=== PATIENT | male | born 1985 | race Hispanic/Latino ===

== ENCOUNTER 2017-12-17 07:56 | Emergency (ER) | payer SELFPAY ==
[~2017-12-17] VITALS: Ht 175.3 cm; Wt 80.0 kg
[~2017-12-17 07:56] MED LIST: AUGMENTIN875TAB OR; DEPO-MEDROL40 MG/ML IM; FIORICET PO; LORTAB 5-325 MG1 TAB PO; LORTAB 5/3255 MG PO; MEDDOSEPAK PO; PHENERGAN25 MG/TAB PO; TORADOL PO
[2017-12-17 09:02] LABS: HEMOGLOBIN 14.6 g/dl (14.0-18.0); IMMATURE GRANULOCYTES 0.5 % (0.0-1.0); MEAN CORPUSCULAR HGB 30.5 pG CALC (26.0-32.0); NEUT# 12.47 thou/uL (1.82-7.42); RED BLOOD COUNT 4.78 mill/uL (4.70-6.10); RED CELL DISTRI WIDTH 12.6 % (11.5-15.5)
[2017-12-17 09:05] LABS: URINE BILIRUBIN - DIPSTICK NEGATIVE (NEGATIVE); URINE BLOOD DIPSTICK LARGE (NEGATIVE); URINE COLOR YELLOW; URINE GLUCOSE - DIPSTICK NEGATIVE (NEGATIVE); URINE KETONE TRACE mg/dL (NEGATIVE); URINE LEUK ESTERASE NEGATIVE (NEGATIVE); URINE NITRITE - DIPSTICK NEGATIVE (Negative); URINE PH 6.5 (4.5-8.0); URINE PROTEIN - DIPSTICK TRACE mg/dL (NEG-TRACE); URINE SPECIFIC GRAVITY 1.025; URINE UROBILINOGEN - DIPSTICK 0.2 E.U./dL (0.2)
[2017-12-17 09:08] LABS: URINE CLARITY SL CLOUDY
[2017-12-17 09:10] LABS: ALBUMIN 4.6 g/dL (3.2-5.0); ALKALINE PHOSPHATASE 87 u/l (38-126); ANION GAP 16 (6-22 (CALC)); BILIRUBIN, TOTAL 0.5 mg/dL (0.0-1.4); BUN 14 mg/dL (9-20); BUN/CREATININE RATIO 12 (12-20 (CALC)); CARBON DIOXIDE 26 mmol/l (22-30); CHLORIDE 104 mmol/l (95-108); CREATININE 1.2 mg/dL (0.7-1.3); GFR > 60 ML/MIN (>=60 (CALC)); GFR FOR AFR.AMER. > 60 ML/MIN (>=60 (CALC)); LIPASE 130 u/l (23-300); POTASSIUM 4.1 mmol/l (3.5-5.1); SGOT/AST 38 u/l (17-59); SGPT/ALT 51 u/l (21-72); SODIUM 142 mmol/l (137-146); TOTAL PROTEIN 7.9 g/dL (6.3-8.2); URINE RBC 25-50 RBC/hpf (0-5)
[2017-12-17] MEDS ORDERED: CEPHALEXIN500 M1 PO (09:54)
[2017-12-17] MEDS ORDERED: HYDROCO/APAP1 TA9 PO (09:54)
[2017-12-17] MEDS ORDERED: MOTRIN400 MG PO (09:54)
[2017-12-17] MEDS ORDERED: TAMSULOSIN0.4 MG PO (09:54)
[2017-12-17 10:19] VITALS: BP 121/77
== END 2017-12-17 10:30 | disposition home or self-care (01) | DRG 694 ==
LOC: ED 07:56
PROVIDERS: Family Medicine
DX: N13.2 Hydronephrosis with renal and ureteral calculous obstruction (principal); R10.9 Unspecified abdominal pain

== ENCOUNTER 2019-10-15 | Emergency (ER) | payer SELFPAY ==
[~2019-10-15] MED LIST changes: +CEPHALEXIN500 M1 PO; +HYDROCO/APAP1 TA9 PO; +MOTRIN400 MG PO; +TAMSULOSIN0.4 MG PO
[2019-10-15 06:31] LABS: HEMATOCRIT 43.8 % (39.0-50.0); HEMOGLOBIN 14.7 g/dl (14.0-18.0); IMMATURE GRANULOCYTES 0.6 % (0.0-5.0); MEAN CELL VOLUME 90.1 fL CALC (80.0-100.0); MEAN CORPUSCULAR HGB 30.2 pG CALC (26.0-32.0); MEAN CORPUSCULAR HGB CONC 33.6 g/L CALC (32.0-36.0); NEUT# 12.25 thou/uL (1.82-7.42); RED BLOOD COUNT 4.86 mill/uL (4.70-6.10); RED CELL DISTRI WIDTH 12.6 % (11.5-15.5)
[2019-10-15 06:49] LABS: ALBUMIN 4.7 g/dL (3.2-5.0); ALKALINE PHOSPHATASE 80 u/l (38-126); ANION GAP 15 (6-22 (CALC)); BILIRUBIN, TOTAL 0.4 mg/dL (0.0-1.4); BUN 16 mg/dL (9-20); BUN/CREATININE RATIO 17 (12-20 (CALC)); CARBON DIOXIDE 26 mmol/l (22-30); CHLORIDE 104 mmol/l (95-108); GFR > 60 ML/MIN (>=60 (CALC)); GFR FOR AFR.AMER. > 60 ML/MIN (>=60 (CALC)); POTASSIUM 3.8 mmol/l (3.5-5.1); SGOT/AST 35 u/l (17-59); SODIUM 141 mmol/l (137-146); TOTAL PROTEIN 8.5 g/dL (6.3-8.2)
[2019-10-15 08:52] LABS: URINE BILIRUBIN - DIPSTICK NEGATIVE (NEGATIVE); URINE BLOOD DIPSTICK LARGE (NEGATIVE); URINE COLOR YELLOW; URINE GLUCOSE - DIPSTICK NEGATIVE (NEGATIVE); URINE KETONE TRACE mg/dL (NEGATIVE); URINE LEUK ESTERASE NEGATIVE (NEGATIVE); URINE NITRITE - DIPSTICK NEGATIVE (Negative); URINE PROTEIN - DIPSTICK TRACE mg/dL (NEG-TRACE); URINE SPECIFIC GRAVITY 1.015; URINE UROBILINOGEN - DIPSTICK 0.2 E.U./dL (0.2)
[2019-10-15 08:57] LABS: URINE RBC 25-50 RBC/hpf (0-5)
[2019-10-15] MEDS ORDERED: HYDROCO/APAP1 TA9 PO (08:57)
[2019-10-15] MEDS ORDERED: CIPROFLOXACN500 MG PO (08:57)
[2019-10-15] MEDS ORDERED: ZOFRAN4 MG/TAB PO (08:57)
[2019-10-15] MEDS ORDERED: TAMSULOSIN0.4 MG PO (08:57)
== END 2019-10-15 09:05 | disposition home or self-care (01) | DRG 694 ==
PROVIDERS: Emergency Medicine
DX: N20.1 Calculus of ureter (principal); Z87.442 Personal history of urinary calculi